=== PATIENT | male | born 1990 | race Caucasian/White ===

== ENCOUNTER 2016-05-23 11:06 | Inpatient (IN) | payer OTHER ==
[~2016-05-23] VITALS: Ht 188 cm; Wt 84.2 kg
--- NOTE | 2016-05-23 14:28 | HISTORY AND PHYSICAL ---
ADMITTED: 05/23/2016 CHIEF COMPLAINT: Left shoulder and arm pain HISTORY OF PRESENT ILLNESS: The patient is an IV drug user, has been injected himself with heroin for a number of years. He ran out of IV sites and gave himself an intramuscular injection to the shoulder area on the left side and then over the last couple days, he has had increasing pain. Said today the pain was especially bad and so he came to the emergency department for care of the same. MEDICAL/SURGICAL HISTORY: The patient's past history is positive in that he has had a previous mandibular fracture and had treatment for that, but he denies any other serious medical illness other than hepatitis, which he knows he has, but he denied AIDS, cancer, tumor, tuberculosis, MS, CVA, hypertension, diabetes, or other serious medical illness. He has had no other surgeries. MEDICATIONS: On no medications other than self injection of heroin. ALLERGIES: NO KNOWN ALLERGIES. SOCIAL HISTORY: Positive for the IV drug abuse and also for tobacco use. FAMILY HISTORY: Noncontributory. He does not have any known history of bleeding or anesthesia complications in the family. REVIEW OF SYSTEMS: Negative for loss of consciousness or seizure disorder, he not had a problem with vision or hearing. He has not had any chest pain, cough, congestion , fever or chills. He denies any vomiting or diarrhea, but he has had some nausea. He has not had any dysuria and denies any other musculoskeletal complaints. PHYSICAL EXAMINATION: GENERAL: Shows the head to be normocephalic and atraumatic. HEENT: His eyes are clear. His extraocular muscles intact. Hearing is grossly normal. He is alert and oriented x3. Mouth and posterior oropharynx are clear and the mouth is symmetrical, tongue is midline. NECK: Without jugular venous distention. HEART: Regular rate and rhythm without murmur. LUNGS: Clear to auscultation. ABDOMEN: Soft and flat. He does have some active bowel sounds. EXTREMITIES: His left upper extremity shows some 2-3+ edema of the upper arm. The compartments are relatively soft. He does have light touch sensation present in the ulnar, median and radial nerve distribution distally and has active abduction, flexion and extension of the fingers through full range of motion and has a 2+ radial pulse. At this point, after elevating the arm here in the emergency room, he has no distal edema. IMPRESSION: Infection of the left upper arm, possible abscess. PLAN: Will be for admission, IV antibiotic dosing and possible incision and drainage of an abscess if there is one found. We are going to put him through the CT scan and have a CT scan done of his shoulder and check to be sure he does not have an abscess present there.
--- NOTE | 2016-05-23 17:00 | Progress Note ---
Subjective General Luke is an IV heroin user and developed an infection post injection to the left deltoid. He is admitted for IV antibiotic care and probable I/D of the shoulder. CT is pending and will help determine further care.
--- NOTE | 2016-05-23 17:59 | DIAGNOSTIC IMAGING REPORT ---
PROCEDURE: CT UPPER EXT W/CONTRAST- LEFT INDICATION: Left upper extremity swelling and tenderness. Initial encounter. TECHNIQUE: 125 ml of Isovue 300 IV with axial scans through the left arm. Coronal and sagittal re-formations. COMPARISON: None. FINDINGS: Marked thickening and inhomogeneity of the left deltoid muscle with a tiny air collection and extensive subcutaneous edema extending all the way down to the elbow joint. This is most consistent with cellulitis and possible phlegmon. There is no definite abscess with a well-defined wall. Bones are unremarkable. IMPRESSION: 1. Extensive cellulitis of the left arm with deltoid muscle phlegmon. There is a small air collection in the deltoid muscle, possibly introduced with a needle puncture, but no well-defined abscess. 2. Results discussed with Dr. Benavides
[2016-05-23 18:51] VITALS: BP 130/82
[2016-05-23 22:36] VITALS: BP 136/77
--- NOTE | 2016-05-23 23:07 | ED MAR SUMMARY ---
..... Medication Administration Record [facility] [address] [place] [address] Patient: SILVIA HICKEY Visit ID: [id number] 26y, M Weight: 70.3 kg Height/Length: 74 in BMI: 19.9 ALLERGIES: No Known Drug Allergy Start 14:14 05/23/2016 Elsa Zafar R.N., Continued Upon Transfer 18:41 05/23/2016 Elsa Zafar R.N. Medication Administered: IV NS (SALINE), Dose: IV Fluids over 1 hour(s), Rate: 1000 mL/hr, Dispensed: 1000 mL bag, Site: #1 right AC. Medication Ordered: IV NS : initial bolus none -, then 1000 mL/hr for X1 (NOW). Given 14:25 05/23/2016 Elsa Zafar R.N. Medication Administered: ZOFRAN [IVP] (ONDANSETRON HCL), Dose: 4 mg IVP over 2 minute(s), Site: #1 right AC. Medication Ordered: Zofran IV 4 mg (NOW). Given 14:27 05/23/2016 Elsa Zafar R.N. Medication Administered: MORPHINE [IVP], Dose: 4 mg IVP over 1 minute(s), Site: #1 right AC. Medication Ordered: Morphine IV 4 mg (HIGH ALERT MEDICATION, NOW). Start 14:57 05/23/2016 Elsa Zafar R.N., Stop 18:41 05/23/2016 Elsa Zafar R.N. Medication Administered: IV LACTATED RINGERS, Dose: IV Fluids over 6 hour(s), Rate: 150 mL/hr, Dispensed: 1000 mL bag, Site: #1 right AC. Medication Ordered: IV Lactated Ringers : initial bolus none -, then 150 mL/hr (NOW). Given 15:49 05/23/2016 Elsa Zafar R.N. Medication Administered: DILAUDID [IVP] (HYDROMORPHONE HCL PF), Dose: 1 mg IVP over 2 minute(s), Site: #1 right AC. Medication Ordered: Dilaudid IV 1 mg (HIGH ALERT MEDICATION, NOW). Start 16:34 05/23/2016 Elsa Zafar R.N., Continued Upon Transfer 18:42 05/23/2016 Elsa Zafar R.N. Medication Administered: VANCOMYCIN [IVPB], Dose: 1.5 gm IVPB over 1.5 hour(s), Rate: 350 mL/hr, Dispensed: 500 mL bag, Site: #1 right AC. Medication Ordered: Vancomycin IV 1.5 gm/500 mL (NOW).
--- NOTE | 2016-05-23 23:07 | ED NURSING NOTES ---
Clinical Report - Nurses [facility] [address] [place] [address] 05/23/2016 11:15 Patient: SILVIA HICKEY TRIAGE Triage time 12:May 23 2016. Acuity: LEVEL 3. Chief Complaint: SKIN RASH and SKIN LESION and TENDER AREA. --12:17 Elsa Zafar R.N. 12:11 05/23/16. BP: 152/74. HR: 112. RR: 18. O2 saturation: 99%. Temp: 98.7 F. Pain level now 11/18. --12:17 Elsa Zafar R.N. Weight: 70.3 kg stated. Height/Length: 74 inches Per Patient. BMI: 19.9. --12:15 Elsa Zafar R.N. Medications None. --12:13 Elsa Zafar R.N. Allergies No Known Drug Allergy. --12:13 Elsa Zafar R.N. History Arrived by private vehicle. Historian: patient. Accompanied by friend. Reported as (left arm). Onset. (2 days). It is described as painful. ( Patient muscling heroin and has a tender and reddened left arm and shoulder.). He has had fever, muscle aches and a headache. No cough, difficulty breathing, itching or weakness. Not itchy or burning. PAST MEDICAL HX: Heart disease: atrial fibrillation. No history of asthma, diabetes mellitus or lung disease. Immunizations: up-to-date. SOCIAL HX: Light tobacco smoker (cigarette)- less than 1/2 a pack per day. History of drug use: heroin, methamphetamines. Recently used drugs just prior to arrival. No alcohol use. SELF HARM ASSESSMENT: A self harm assessment was performed. The patient answered "no" to the question "Have you recently felt down, depressed, or hopeless?" and "Do you have thoughts of harming or killing yourself?". FALL RISK ASSESSMENT: Fall risk assessment completed. No fall risk identified. NUTRITIONAL RISK ASSESSMENT: The nutritional risk assessment revealed no deficiencies. FUNCTIONAL ASSESSMENT: Functional assessment: no impairments noted. LEARNING NEEDS ASSESSMENT: The learning needs assessment revealed no barriers. ABUSE ASSESSMENT: Abuse assessment: (yes) The patient was asked "Do you feel safe in your home?". SKIN INTEGRITY ASSESSMENT: Skin integrity risk assessment completed. No skin integrity risk identified. --12:17 Elsa Zafar R.N. PROBLEMS: Lifestyle / Substance Problems. Arrhythmia. --12:13 Elsa Zafar R.N. ADDITIONAL SURGERIES: Jaw surgery . --12:13 Elsa Zafar R.N. Interventions ID band on patient. --12:17 Elsa Zafar R.N. PHYSICAL ASSESSMENT Ambulatory to room. ( IV and IM heroin user with previous tracks and wounds.). GENERAL / NEURO / PSYCH: Alert. Appears in pain and in distress. Oriented X 4. HEENT: Pupils equal, round and reactive to light. Mucous membranes are pink. RESPIRATORY: Respirations not labored. CVS: ( left arm csm 5-6 seconds right arm wnl). Pulses within normal limits. GI / : Abdomen nontender. SKIN: Normal skin turgor. No skin rash. --12:19 Elsa Zafar R.N. NURSING PROGRESS NOTES The initial plan of care for this patient includes an assessment with efforts to address patient positioning and appropriate ambient lighting; impairment of the integumentary system. Pulse oximeter and NIBP monitor placed on patient. Patient gowned. Head of bed elevated (45). Reassurance given. Call light placed in reach. Side rails up x 2. Bed placed in lowest position. Brakes of bed on. --12:19 Elsa Zafar R.N. 13:14 05/23/16. BP: 115/74. Additional comments: Left wrist. --13:15 Annemarie Schuler 13:15 05/23/16. BP: 144/87. Additional comments: Right wrist. --13:16 Annemarie Schuler 14:13 05/23/2016 Site #1 started via IV in the right antecubital space with an 18g angiocath, with aseptic technique and good blood return; two attempts. Blood drawn: rainbow set and cultures x1. Labeled in the presence of the patient and sent to the lab. Saline lock flushed with 10 mL saline. --14:14 Elsa Zafar R.N. 14:14 05/23/2016 Started bag #1 1000 mL IV Fluids IV NS (Saline); at 1000 mL/hr over 1 hour(s) via site #1 via IV pump. Allergies verified and confirmed 5 rights. IV patency established. IV site checked: no pain, redness, or swelling. IV flushed thoroughly pre- and post-medication administration. --14:14 Elsa Zafar R.N. 14:25 05/23/2016 Zofran (Ondansetron HCl) IVP 4 mg given over 2 minute(s) via site #1. Allergies verified and confirmed 5 rights. IV patency established. IV site checked: no pain, redness, or swelling. IV flushed thoroughly pre- and post-medication administration. --14:25 Elsa Zafar R.N. 14:27 05/23/2016 Morphine IVP 4 mg given over 1 minute(s) via site #1. Allergies verified, confirmed 5 rights and sedative warning given to the patient. IV patency established. IV site checked: no pain, redness, or swelling. IV flushed thoroughly pre- and post-medication administration. --14:27 Elsa Zafar R.N. 14:57 05/23/2016 Started bag #1 1000 mL IV Fluids IV LACTATED RINGERS; at 150 mL/hr over 6 hour(s) via site #1 via dial-a-flow. Allergies verified and confirmed 5 rights. IV patency established. IV site checked: no pain, redness, or swelling. IV flushed thoroughly pre- and post-medication administration. --14:57 Elsa Zafar R.N. 15:49 05/23/2016 Dilaudid (HYDROmorphone HCl PF) IVP 1 mg given over 2 minute(s) via site #1. Allergies verified, confirmed 5 rights and sedative warning given to the patient. IV patency established. IV site checked: no pain, redness, or swelling. IV flushed thoroughly pre- and post-medication administration. --15:49 Elsa Zafar R.N. 16:34 05/23/2016 Started 1.5 gm of Vancomycin IVPB in bag #1 500 mL; at 350 mL/hr over 1.5 hour(s) via site #1 via IV pump. Allergies verified and confirmed 5 rights. IV patency established. IV site checked: no pain, redness, or swelling. IV flushed thoroughly pre- and post-medication administration. --16:34 Elsa Zafar R.N. ( Report given to french ANTHONY in ACU transport called.). --18:10 Elsa Zafar R.N. 18:13 05/23/16. BP: 147/73. HR: 98. RR: 18. O2 saturation: 98%. Temp: 98.7 F. Pain level now 12/19. --18:15 Elsa Zafar R.N. 18:41 05/23/2016 IV Fluids IV NS Continued: upon transfer at the rate of 125 mL/hr. 500 mL remaining bag #1. IV patency established. IV site checked: no pain, redness, or swelling. IV flushed thoroughly. --18:41 Elsa Zafar R.N. 18:41 05/23/2016 IV Fluids IV LACTATED RINGERS Discontinued: bag #1 infused. Total amount infused: 1000 mL. IV patency established. IV site checked: no pain, redness, or swelling. IV flushed thoroughly. --18:41 Elsa Zafar R.N. 18:42 05/23/2016 Site #[address] upon transfer; patent. Good blood return present. --18:42 Elsa Zafar R.N. 18:42 05/23/2016 Vancomycin IVPB Continued: upon transfer at the rate of 350 mL/hr. 300 mL remaining bag #1. IV patency established. IV site checked: no pain, redness, or swelling. IV flushed thoroughly. --18:42 Elsa Zafar R.N. DISPOSITION / DISCHARGE Departure time: 18:40 May 23 2016. Condition at departure: improved. Admitted to Acute Care. ( report given and transportation here for transport.). --18:40 Elsa Zafar R.N. 18:13 05/23/16. BP: 147/73. HR: 98. RR: 18. O2 saturation: 98%. Temp: 98.7 F. Pain level now 12/19. --18:40 Elsa Zafar R.N. Locked/Released at 05/23/2016 19:26 by Elsa Zafar R.N.
--- NOTE | 2016-05-23 23:07 | ED DISCHARGE INSTRUCTIONS ---
Patient: SILVIA HICEKY General Instructions [facility] VisitID: [id number] [address] [place] [address] 26y, M Registration Date/Time: 05/23/2016 Single deep abscess to the left upper extremity. Moderate leukocytosis with bandemia. (Electronically signed by Jose E Benavides Dr. 05/23/2016 23:07)
--- NOTE | 2016-05-23 23:07 | ED MED RECONCILIATION SUMMARY ---
Patient: SILVIA HICKEY Medication Reconciliation Report [facility] VisitID: [id number] [address] [place] [address] 26y, M Registration Date/Time: 05/23/2016 Weight: 70.3 kg Height/Length: 74 in. BMI: 19.9 ALLERGIES: No Known Drug Allergy The patient's Home Medications are listed below: NONE. The source(s) of the original Home Medication information: Not obtained. The following Medications were given to the patient in the Emergency Department: IV NS IV Fluids bolus 0, then 1000 mL/hr, administered: 05/23/2016 2:14:00 PM Zofran [IVP] IVP 4 mg, administered: 05/23/2016 2:25:00 PM Morphine [IVP] IVP 4 mg, administered: 05/23/2016 2:27:00 PM IV LACTATED RINGERS IV Fluids bolus 0, then 150 mL/hr, administered: 05/23/2016 2:57:00 PM Dilaudid [IVP] IVP 1 mg, administered: 05/23/2016 3:49:00 PM Vancomycin [IVPB] IVPB bolus 0, then 1.5 gm 350 mL/hr, administered: 05/23/2016 4:34:00 PM The following Medications were prescribed to the patient: None.
--- NOTE | 2016-05-23 23:07 | ED MED RECONCILIATION SUMMARY ---
Patient: SILVIA HICKEY Medication Reconciliation Report [facility] VisitID: [id number] [address] [place] [address] 26y, M Registration Date/Time: 05/23/2016 Weight: 70.3 kg Height/Length: 74 in. BMI: 19.9 ALLERGIES: No Known Drug Allergy The patient's Home Medications are listed below: NONE. The source(s) of the original Home Medication information: Not obtained. The following Medications were given to the patient in the Emergency Department: IV NS IV Fluids bolus 0, then 1000 mL/hr, administered: 05/23/2016 2:14:00 PM Zofran [IVP] IVP 4 mg, administered: 05/23/2016 2:25:00 PM Morphine [IVP] IVP 4 mg, administered: 05/23/2016 2:27:00 PM IV LACTATED RINGERS IV Fluids bolus 0, then 150 mL/hr, administered: 05/23/2016 2:57:00 PM Dilaudid [IVP] IVP 1 mg, administered: 05/23/2016 3:49:00 PM Vancomycin [IVPB] IVPB bolus 0, then 1.5 gm 350 mL/hr, administered: 05/23/2016 4:34:00 PM The following Medications were prescribed to the patient: None.
--- NOTE | 2016-05-23 23:07 | ED DISCHARGE INSTRUCTIONS ---
Patient: SILVIA HICKEY General Instructions [facility] VisitID: [id number] [address] [place] [address] 26y, M Registration Date/Time: 05/23/2016 Single deep abscess to the left upper extremity. Moderate leukocytosis with bandemia. (Electronically signed by Jose E Benavides Dr. 05/23/2016 23:07)
--- NOTE | 2016-05-23 23:07 | ED ORDER SUMMARY ---
..... Patient: SILVIA HICKEY OrderSheet [facility] VisitID: [id number] [place] [address] 26y, M Registration Date/Time: 05/23/2016 ORDER SHEET Weight: 70.3 kg (stated) Allergies: No Known Drug Allergy GENERAL ORDERS: CBC w Diff Urgent (13:18 05/23/2016 Jeremy Toro) (Ack 13:19 TBergley) (14:12 LWhalen R.N.) CMP Urgent (13:18 05/23/2016 Jeremy Toro) (Ack 13:19 TBergley) (14:12 LWhalen R.N.) UA-Culture if indicated Urgent (13:18 05/23/2016 Jeremy Toro) (Ack 13:19 TBergley) (14:12 LWhalen R.N.) Urine Drug Screen Urgent (13:05/23/2016 Jeremy Toro) (Ack 13:19 TBergley) (14:12 LWhalen R.N.) Blood Culture (No) (N/A) Urgent (13:05/23/2016 Jeremy Toro) (Ack 13:23 TBergley) (14:12 LWhalen R.N.) CRP Urgent (13:22 05/23/2016 Jeremy Toro) (Ack 13:23 TBergley) (14:12 LWhalen R.N.) Sed Rate Urgent (13:05/23/2016 Jeremy Toro) (Ack 13:23 TBergley) (14:12 LWhalen R.N.) PCT (Procalcitonin) Urgent (13:22 05/23/2016 Jeremy Toro) (Ack 13:23 TBergley) (14:12 LWhalen R.N.) Lactate, Serum Urgent (13:22 05/23/2016 Jeremy Toro) (Ack 13:23 TBergley) (14:12 LWhalen R.N.) NPO (14:36 05/23/2016 Jeremy Toro) (14:57 LWhalen R.N.) CT Upper Ext w/Contrast - Left Urgent (15:44 05/23/2016 Jeremy Toro) (Ack 15:46 TBergley) (17:33 TBergley) MEDICATION ORDERS: IV FLUIDS: IV NS : initial bolus none -, then 1000 mL/hr for X1 (NOW) (13:15 05/23/2016 Jeremy Toro) (14:14 LWhalkevin R.N.) Morphine IV 4 mg (HIGH ALERT MEDICATION, NOW) (14:18 05/23/2016 Jeremy Toro) (14:27 LWhalen R.N.) Zofran IV 4 mg (NOW) (14:18 05/23/2016 Jeremy Toro) (14:25 LWhalkevin R.N.) IV Lactated Ringers : initial bolus none -, then 150 mL/hr (NOW) (14:36 05/23/2016 Jeremy Toro) (14:57 LWhalen R.N.) Vancomycin IV 1.5 gm/500 mL (NOW) (15:41 05/23/2016 Jeremy Toro) (16:34 LWhalen R.N.) Dilaudid IV 1 mg (HIGH ALERT MEDICATION, NOW) (15:46 05/23/2016 Jeremy Toro) (15:49 LWhalkevin R.N.) ORDER SHEET NOTES: [Electronically signed by Elsa Zafar R.N. (19:26 05/23/2016)] [Electronically signed by Jose E Benavides Dr. (23:07 05/23/2016)] [Electronically locked/signed by Elsa Zafar R.N. (19:26 05/23/2016)]
--- NOTE | 2016-05-23 23:07 | ED MAR SUMMARY ---
..... Medication Administration Record [facility] [address] [address] Patient: SILVIA HICKEY Visit ID: [id number] 26y, M Weight: 70.3 kg Height/Length: 74 in BMI: 19.9 ALLERGIES: No Known Drug Allergy Start 14:14 05/23/2016 Elsa Zafar R.N., Continued Upon Transfer 18:41 05/23/2016 Elsa Zafar R.N. Medication Administered: IV NS (SALINE), Dose: IV Fluids over 1 hour(s), Rate: 1000 mL/hr, Dispensed: 1000 mL bag, Site: #1 right AC. Medication Ordered: IV NS : initial bolus none -, then 1000 mL/hr for X1 (NOW). Given 14:25 05/23/2016 Elsa Zafar R.N. Medication Administered: ZOFRAN [IVP] (ONDANSETRON HCL), Dose: 4 mg IVP over 2 minute(s), Site: #1 right AC. Medication Ordered: Zofran IV 4 mg (NOW). Given 14:27 05/23/2016 Elsa Zafar R.N. Medication Administered: MORPHINE [IVP], Dose: 4 mg IVP over 1 minute(s), Site: #1 right AC. Medication Ordered: Morphine IV 4 mg (HIGH ALERT MEDICATION, NOW). Start 14:57 05/23/2016 Elsa Zafar R.N., Stop 18:41 05/23/2016 Elsa Zafar R.N. Medication Administered: IV LACTATED RINGERS, Dose: IV Fluids over 6 hour(s), Rate: 150 mL/hr, Dispensed: 1000 mL bag, Site: #1 right AC. Medication Ordered: IV Lactated Ringers : initial bolus none -, then 150 mL/hr (NOW). Given 15:49 05/23/2016 Elsa Zafar R.N. Medication Administered: DILAUDID [IVP] (HYDROMORPHONE HCL PF), Dose: 1 mg IVP over 2 minute(s), Site: #1 right AC. Medication Ordered: Dilaudid IV 1 mg (HIGH ALERT MEDICATION, NOW). Start 16:34 05/23/2016 Elsa Zafar R.N., Continued Upon Transfer 18:42 05/23/2016 Elsa Zafar R.N. Medication Administered: VANCOMYCIN [IVPB], Dose: 1.5 gm IVPB over 1.5 hour(s), Rate: 350 mL/hr, Dispensed: 500 mL bag, Site: #1 right AC. Medication Ordered: Vancomycin IV 1.5 gm/500 mL (NOW).
--- NOTE | 2016-05-23 23:07 | ED CLINICAL REPORT ---
Clinical Report - Physicians/Mid Levels [facility] [address] [place] [address] 05/23/2016 11:15 Patient: SILVIA HICKEY Time Seen: 12:58; initial patient contact. Arrived- By private vehicle. Historian- patient. HISTORY OF PRESENT ILLNESS Chief Complaint: BOIL. This started about 2 days ago and is still present and worsening. It was gradual in onset. It is described as painful. It has been located on the left arm. A cause has been identified (IM heroin injecting). No recent medication or insect bite. Similar symptoms previously: Several times. Recent medical care: Not recently seen/assessed. REVIEW OF SYSTEMS The patient has had fever, chills and numbness. No enlarged lymph nodes. All systems otherwise negative, except as recorded above. PAST HISTORY Lifestyle / Substance Problems. Arrhythmia. SURGERIES: Jaw surgery. Medications: None. Allergies: No Known Drug Allergy. SOCIAL HISTORY History of IV drug use: heroin, methamphetamines. Recently used drugs today. No alcohol use. ADDITIONAL NOTES The nursing notes have been reviewed with agreement regarding the chief complaint, PMH and patient medications and allergies. PHYSICAL EXAM Vital Signs: 05/23/2016 12:11 BP: 152/74. HR: 112. RR: 18. O2 saturation: 99%. Temp: 98.7 F. Have been reviewed. Hypertensive. Tachycardic. Respiratory rate normal. Temperature normal. Oxygen saturation normal. Appearance: Alert. Oriented X3. Appears to be in pain. ENT: Dry mucous membranes present. Neck: No lymphadenopathy. CVS: Normal heart rate and rhythm. Heart sounds normal. Respiratory: No respiratory distress. Breath sounds normal. Skin: Cool skin (L forearm, mild). Erythema. Single large tender indurated area with cellulitis to left arm. Cellulitis. Neuro: The patient has had constant weakness of the left hand (mild). Sensory deficit present. (Mild to light touch L hand). LABS, X-RAYS, AND EKG Note - Special Studies: CT LUE: 1. Extensive cellulitis of the left arm with deltoid muscle phlegmon. There is a small air collection in the deltoid muscle, possibly introduced with a needle puncture, but no well-defined abscess. Laboratory Tests: UA-Culture if indicated: (GRACIE: 05/23/2016 14:18) ( [facility] 05/23/2016 14:54) Final results Test Result Flag Units (Reference) URINE COLOR YELLOW URINE APPEARANCE CLEAR URINE GLUCOSE NEGATIVE (NEGATIVE) URINE BILIRUBIN NEGATIVE (NEGATIVE) URINE KETONE NEGATIVE (NEGATIVE) URINE SPECIFIC GRAVITY >= 1.030 (1.010-1.030) URINE PH 6.0 (5.0-8.0) URINE PROTEIN TRACE (NEGATIVE) URINE UROBILINOGEN 0.2 EU/dL (0.2-1.0) URINE NITRITE NEGATIVE (NEGATIVE) URINE BLOOD NEGATIVE (NEGATIVE) URINE LEUK ESTERASE NEGATIVE (NEGATIVE) URINE RBC NONE SEEN rbc/hpf (0-1) URINE WBC 0-1 wbc/hpf (0-1) URINE EPITHELIAL CELLS 0-1 EPI/hpf (0-5) URINE BACTERIA NONE SEEN (NONE SEEN) URINE COMMENT CULT NOT INDICATED 2+ MUCUS2+ CALCIUM OXALATE CRYSTALSURINE CULTURES ARE SET-UP BASED ON THE FOLLOWING CRITERIA:POSITIVE NITRITEPOSITIVE LEUKOCYTE ESTERASEGREATER THAN 10 WHITE BLOOD CELLSMODERATE (2+) OR GREATER BACTERIA ESR: (GRACIE: 05/23/2016 14:02) ( [facility] 05/23/2016 14:37) Final results Test Result Flag Units (Reference) SED RATE WESTERGREN 2 mm/hr (0-15) CBC w Diff: (GRACIE: 05/23/2016 14:02) ( [facility] 05/23/2016 18:49) Final results Test Result Flag Units (Reference) WHITE BLOOD COUNT 26.3 *H K/uL (4.5-11.5) CRITICAL RESULTS CALLEDCalled to Mei DREW 05/23/16 1815Were 2 patient identifiers used? YWas the result read back? Y RED BLOOD COUNT 5.99 H M/uL (4.50-5.90) HEMOGLOBIN 16.7 gm/dL (13.5-17.5) HEMATOCRIT 50.9 % (41.0-53.0) MEAN CELL VOLUME 85 fL (80-100) MEAN CORPUSCULAR HGB 28 pg (26-34) MEAN CORPUSCULAR HGB CONC 33 g/dL (31-37) RED CELL DISTRIBUTION WIDTH 14.5 % (11.6-14.8) PLATELET COUNT 257 K/uL (150-400) POLY % 84 H % (50-75) BAND % 5 % (0-8) LYMPH 6 L % (25-40) MONO 5 % (3-14) EOSINOPHIL % 0 % (0-4) BASOPHIL % 0 % (0-2) METAMYELOCYTE % 0 % (0-1) MYELOCYTE 0 % (0-1) OTHER CELL TYPE 0 RBC MORPHOLOGY NORMOCHROMIC~~NORMOCYTIC [id number]: (GRACIE: 05/23/2016 14:02) ( [facility] 05/23/2016 14:38) Final results Test Result Flag Units (Reference) C-REACTIVE PROTEIN 16.8 H mg/dL (0.0-0.9) Lactate, Serum: (GRACIE: 05/23/2016 14:05) ( [facility] 05/23/2016 14:49) Final results Test Result Flag Units (Reference) LACTIC ACID 1.2 mmol/L (0.4-2.0) [id number]: (GRACIE: 05/23/2016 14:02) ( [facility] 05/23/2016 14:54) Final results Test Result Flag Units (Reference) PROCALCITONIN <0.5 ng/mL (0-0.5) PCT Concentration: Interpretation : Risk/option for action PCT <=0.5 ng/mL : Systemic : Low risk forinfection(sepsis): progression to severeis not likely. : systemic infection.Local bacterial : CAUTION-PCT levelsinfection is : below 0.5 ng/mL do notpossible. : exclude an infection,because localizedinfections (withoutsystemic signs) may beassociated with suchlow levels. If PCT ismeasured very earlyafter a bacterialchallenge (usually <6hours), these valuesmay still be low. Inthis case PCT shouldbe re-assessed 6-24hours later. PCT >0.5 and : Systemic infection: Moderate risk for<= 2 ng/mL : (sepsis) is : progression to severepossible, but : systemic infection.other conditions : The patient should beare known to : closely monitoredelevate PCT. : both clinically andby re-assessing PCTwithin 6-24 hours. PCT > 2 ng/mL : Systemic infection: High risk for(sepsis) is likely: progression to severeunless other : systemic infection.causes are known. : PCT >= 10 ng/mL : Important systemic: High likelihood ofinflammatory : severe sepsis orresponse, almost : septic shock.exclusively due to:severe bacterial :sepsis or septic :shock. : Urine Drug Screen: (GRACIE: 05/23/2016 14:18) ( MsgRcvd 05/23/2016 14:38) Final results Test Result Flag Units (Reference) AMPHETAMINE/METHAMPHETAMINE POSITIVE H (NEGATIVE) BARBITURATE NEGATIVE (NEGATIVE) BENZODIAZEPINE POSITIVE H (NEGATIVE) CANNABINOID NEGATIVE (NEGATIVE) COCAINE NEGATIVE (NEGATIVE) ECSTASY POSITIVE H (NEGATIVE) METHADONE NEGATIVE (NEGATIVE) OPIATE POSITIVE H (NEGATIVE) The urine drug screen is a qualitative screening test fordrug overdose and abuse. All screen results should beconsidered as presumptive.Drugs screened for are as follows:BenzodiazepinesCocaineAmphetamines/MetamphetaminesTHC (Tetrahydrocannabinol)OpiatesBarbituratesEcstasyMethadonePositive results are unconfirmed. For confirmation, notifythe lab for the specimen to be sent to the reference lab.All confirmations must be performed by a differentmethodology.The ingestion of natural herbal and plant productscontaining Ephedra/Ephedra metabolites can produce in urineone or more substances capable of cross reacting withamphetamine/methamphetamine immunoassays. These testsprovide a preliminary result only. A more specificalternative chemical method must be used to obtain aconfirmed analytical result. CMP: (GRACIE: 05/23/2016 14:02) ( MsgRcvd 05/23/2016 18:21) Final results Test Result Flag Units (Reference) GLUCOSE 126 H mg/dL (70-110) BUN 10 mg/dL (7-18) CREATININE 0.7 mg/dL (0.6-1.3) Estimated GFR >60 mL/min Estimated GFR- >60 mL/min Note: Persistent reduction over 3 months in eGFR<60 mL/min/1.73 m2 defines CKD. Patients with eGFR values>=60 mL/min/1.73 m2 may also have CKD if evidence ofpersistent proteinuria. Additional information may be foundat www.kidney.org. SODIUM 135 L mmol/L (136-145) POTASSIUM 4.2 mmol/L (3.5-5.1) CHLORIDE 101 mmol/L (98-107) CARBON DIOXIDE 27 mmol/L (21-32) CALCIUM 8.4 L mg/dL (8.5-10.1) TOTAL PROTEIN 7.4 g/dL (6.4-8.2) ALBUMIN 3.3 g/dL (3.3-5.0) BILIRUBIN, TOTAL 1.5 H mg/dL (0.0-1.0) ALKALINE PHOSPHATASE 67 U/L (46-116) AST (SGOT) 71 H U/L (15-37) ALT (SGPT) 82 H U/L (12-78) . PROGRESS AND PROCEDURES Course of Care: 05/23/2016 18:13 BP: 147/73. HR: 98. RR: 18. O2 saturation: 98%. Temp: 98.7 F. Vital Signs: have been reviewed. Hypertensive. Heart rate normal. Respiratory rate normal. Oxygen saturation normal. Critical care performed (70 minutes). Time includes: direct patient care, patient reassessment, coordination of patient care, interpretation of data (laboratory data), review of patient's medical records, medical consultation and documentation of patient care. The patient required critical care due to the acute impairment of vital organ systems (metabolic) and a high probability of imminent deterioration. Multiple urgent interventions were required to prevent sudden deterioration (Musculoskeletal and neurologic). Discussed case with on-call health care provider, (call returned 1330 Dr. Lara will admit the pt for surgery). Disposition: Admitted to Acute Care. CLINICAL IMPRESSION Single deep abscess to the left upper extremity. Moderate leukocytosis with bandemia. (Electronically signed by Jose E Benavides Dr. 05/23/2016 23:07)
--- NOTE | 2016-05-23 23:07 | ED ORDER SUMMARY ---
..... Patient: SILVIA HICKEY OrderSheet [facility] VisitID: [id number] [place] [address] 26y, M Registration Date/Time: 05/23/2016 ORDER SHEET Weight: 70.3 kg (stated) Allergies: No Known Drug Allergy GENERAL ORDERS: CBC w Diff Urgent (13:18 05/23/2016 Jeremy Toro) (Ack 13:19 TBergley) (14:12 LWhalen R.N.) CMP Urgent (13:18 05/23/2016 Jeremy Toro) (Ack 13:19 TBergley) (14:12 LWhalen R.N.) UA-Culture if indicated Urgent (13:18 05/23/2016 Jeremy Toro) (Ack 13:19 TBergley) (14:12 LWhalen R.N.) Urine Drug Screen Urgent (13:05/23/2016 Jeremy Toro) (Ack 13:19 TBergley) (14:12 LWhalen R.N.) Blood Culture (No) (N/A) Urgent (13:05/23/2016 Jeremy Toro) (Ack 13:23 TBergley) (14:12 LWhalen R.N.) CRP Urgent (13:22 05/23/2016 Jeremy Toro) (Ack 13:23 TBergley) (14:12 LWhalen R.N.) Sed Rate Urgent (13:05/23/2016 Jeremy Toro) (Ack 13:23 TBergley) (14:12 LWhalen R.N.) PCT (Procalcitonin) Urgent (13:22 05/23/2016 Jeremy Toro) (Ack 13:23 TBergley) (14:12 LWhalen R.N.) Lactate, Serum Urgent (13:22 05/23/2016 Jeremy Toro) (Ack 13:23 TBergley) (14:12 LWhalen R.N.) NPO (14:36 05/23/2016 Jeremy Toro) (14:57 LWhalen R.N.) CT Upper Ext w/Contrast - Left Urgent (15:44 05/23/2016 Jeremy Toro) (Ack 15:46 TBergley) (17:33 TBergley) MEDICATION ORDERS: IV FLUIDS: IV NS : initial bolus none -, then 1000 mL/hr for X1 (NOW) (13:15 05/23/2016 Jeremy Toro) (14:14 LWhalkevin R.N.) Morphine IV 4 mg (HIGH ALERT MEDICATION, NOW) (14:18 05/23/2016 Jeremy Toro) (14:27 LWhalen R.N.) Zofran IV 4 mg (NOW) (14:18 05/23/2016 Jeremy Toro) (14:25 LWhalkevin R.N.) IV Lactated Ringers : initial bolus none -, then 150 mL/hr (NOW) (14:36 05/23/2016 Jeremy Toro) (14:57 LWhalen R.N.) Vancomycin IV 1.5 gm/500 mL (NOW) (15:41 05/23/2016 Jeremy Toro) (16:34 LWhalen R.N.) Dilaudid IV 1 mg (HIGH ALERT MEDICATION, NOW) (15:46 05/23/2016 Jeremy Toro) (15:49 LWhalkevin R.N.) ORDER SHEET NOTES: [Electronically signed by Elsa Zafar R.N. (19:26 05/23/2016)] [Electronically signed by Jose E Benavides Dr. (23:07 05/23/2016)] [Electronically locked/signed by Elsa Zafar R.N. (19:26 05/23/2016)]
[2016-05-24 02:03] VITALS: BP 123/69
[2016-05-24 06:51] VITALS: BP 132/82
--- NOTE | 2016-05-24 08:29 | Progress Note ---
Subjective General VSS Afeb WBC 26.[address] shows no abscess. Continue IV Vancocin Check labs in am
--- NOTE | 2016-05-24 08:29 | Progress Note ---
Subjective General VSS Afeb WBC 26.[address] shows no abscess. Continue IV Vancocin Check labs in am
[2016-05-24 11:37] VITALS: BP 132/78
[2016-05-24 15:15] VITALS: BP 144/81
[2016-05-24 18:06] VITALS: BP 134/75
[2016-05-24 22:20] VITALS: BP 141/76
[2016-05-25 03:35] VITALS: BP 134/79
--- NOTE | 2016-05-25 06:30 | Progress Note ---
Subjective General VSS Afeb Labs still pending. C/S with no growth yesterday Left shoulder and arm are, if anything, more swollen again today. NMV remains intact distally and he does not have a compartment syndrome, but he is not getting well and still has considerable pain. I will order a repeat CT today and think he may be developing an abscess of the arm even though the original CT did not show one. if there is an abscess, then I?D will be necessary.
[2016-05-25 07:13] VITALS: BP 133/87
--- NOTE | 2016-05-25 10:24 | DIAGNOSTIC IMAGING REPORT ---
PROCEDURE: XR CHEST 1 VIEW INDICATION: PICC PLACEMENT TECHNIQUE: Portable AP view 10:10 a.m. COMPARISON: Chest x-ray 09/04/2011 FINDINGS: Interval placement of a right PICC line with the tip at the SVC/right atrial junction. Lungs are clear. Heart and mediastinum are normal. Thorax is normal. IMPRESSION: 1. Right PICC line in satisfactory position 2. Results called to respiratory (Jae).
--- NOTE | 2016-05-25 12:22 | DIAGNOSTIC IMAGING REPORT ---
PROCEDURE: CT UPPER EXT W/CONTRAST- LEFT INDICATION: Swelling and pain left shoulder and upper arm ?abscess. TECHNIQUE: 125 ml Isovue 300 IV with axial scans, coronal and sagittal re-formations. COMPARISON: Left shoulder CT scan 05/23/2016 FINDINGS: Stable enlargement and inhomogeneity of the deltoid muscle with no change in the small gas collection and no evidence of a focal abscess. There is extensive subcutaneous edema of the left arm extending down to the elbow with increasing edema of the left anterior lateral chest wall. There is marked narrowing of the left axillary vein secondary to edema. Mildly prominent left axillary lymph nodes. There is a new small left pleural effusion and mild left basilar compress atelectasis. IMPRESSION: 1. No change in the deltoid cellulitis without evidence of an abscess but there are is a tiny gas collection and S organism is a possibility 2. Extensive edema of the arm extending to the elbow, with marked narrowing of the left axillary vein, secondary to edema 3. Progression of left marked chest wall edema 4. New small left pleural effusion 5. Results discussed with Dr. Lara
--- NOTE | 2016-05-25 14:06 | Progress Note ---
Subjective General CT reviewed and discussed with Radiologist. He has edema w/o abscess seen and a tiny pocket of air in the lateral deltoid that likely represents the injection site and which has not changed from the previous exam. The WBC is down to 16.5 and he is afebrile and comfortable with the PO pain meds. I have added PCN to the Vancocin and will recheck in am.
[2016-05-25 14:40] VITALS: BP 121/68
[2016-05-25 19:14] VITALS: BP 113/64
[2016-05-25 22:22] VITALS: BP 121/57
[2016-05-26] VITALS (7 sets, daily range): BP systolic 11–176; BP diastolic 51–78
--- NOTE | 2016-05-26 11:25 | Progress Note ---
Subjective General VSS Afebrile WBC 11.5 Better today with some decreaed edema. NMV intact distally. Continue IV antibiotics.
--- NOTE | 2016-05-26 11:25 | Progress Note ---
Subjective General VSS Afebrile WBC 11.5 Better today with some decreaed edema. NMV intact distally. Continue IV antibiotics.
[2016-05-27 02:08] VITALS: BP 121/54
[2016-05-27 07:21] VITALS: BP 124/58
--- NOTE | 2016-05-27 07:38 | Progress Note ---
Subjective General VSS Afebrile Labs pending. Decreased edema, warmth, and erythema this am. He's moving the shoulder and elbow through near full AROM with only mild discomfort. Continue IV antibiotics. Wean Methadone.
[2016-05-27 10:23] VITALS: BP 126/57
[2016-05-27 14:16] VITALS: BP 127/48
[2016-05-27 18:17] VITALS: BP 129/81
[2016-05-27 22:37] VITALS: BP 121/69
[2016-05-28 02:49] VITALS: BP 120/73
[2016-05-28 07:19] VITALS: BP 128/67
--- NOTE | 2016-05-28 07:28 | Progress Note ---
Subjective General VSS Afeb Labs pending His arm is slowly getting better with decreased edema and erythema and warmth today He still needs placement/drug rehab/methadone clinic. He might be DCd when OP arrangements are made. Continue antibiotics. Wean Methadone.
[2016-05-28 11:07] VITALS: BP 123/59
[2016-05-28 14:32] VITALS: BP 129/71
[2016-05-28] MEDS ORDERED: BACTRIM DS1 TAB PO (14:59)
--- NOTE | 2016-05-28 14:59 | Provider's Discharge Care Plan ---
Problem, Goal, Plan Problem List 1. Cellulitis of arm, left
--- NOTE | 2016-05-28 14:59 | Provider's Discharge Care Plan ---
Problem, Goal, Plan Problem List 1. Cellulitis of arm, left
[2016-05-28] MEDS ORDERED: PEN-VEE K250 MG PO (15:00)
[2016-05-28] MEDS ORDERED: METHADONE HCL5 MG PO (15:01)
--- NOTE | 2016-05-29 04:01 | DISCHARGE SUMMARY ---
ADMIT DATE: 05/23/2016 DISCHARGE DATE: 05/28/2016 DISCHARGE DIAGNOSIS: 1. Cellulitis of the left arm BRIEF HISTORY: History is that the patient has been shooting himself with heroin. Just injected into the muscle of his left shoulder and began having increased swelling and pain of the left arm and came to the emergency department, had a cellulitis and was admitted for care of the same, with the thought he might develop an abscess, might need to have drainage which in fact it turned out not to be the case. HOSPITAL COURSE: No abscess was seen on multiple CT scans. The patient was started first on vancomycin and then later penicillin was added to the regimen. With that, his white count, which was markedly elevated at admission, dropped down to normal. His vital signs were stable. He is afebrile. The swelling, pain, erythema, and warmth in the arm all subsided. His sensation, motor function, and circulation remained intact throughout. By 05/28/2016, he is feeling much better. DISCHARGE MEDICATIONS/INSTRUCTIONS: He was discharged home. He said he could go home to his father's house. He had been living in the [facility] prior to this, but he said he could go home to his father's house and was discharged. He was placed on methadone while he was here in the hospital and I did order methadone 5 mg to take 3 pills p.o. b.i.d. He was given instructions on how to get the methadone clinic and get started there. I just ordered 20 of pills and hopefully by then he can get to the methadone clinic and get started on a program there, rather than go back to his self injections. He will return for followup in our office in a week and he will take penicillin 250 mg q.i.d. and Bactrim-DS 1 tablet p.o. b.i.d. and 30 of the Bactrim and 60 of the penicillin were ordered. The condition at discharge is stable. Prognosis is good. Discharge status again is in the care of his father.
== END 2016-05-28 16:52 | disposition home or self-care (01) | DRG 383 ==
LOC: ED SRH 11:06 → TRANS SRH 14:00 → ACUTE2 SRH 14:00
PROVIDERS: ADMIT Family Medicine
PROC: 3E0234Z Introduction of Serum, Toxoid and Vaccine into Muscle, Percutaneous Approach (ICD-10-PCS; 2016-05-24)
PROC: 02HV33Z Insertion of Infusion Device into Superior Vena Cava, Percutaneous Approach (ICD-10-PCS; principal; 2016-05-25)
DX: L03.114 Cellulitis of left upper limb (principal); D72.829 Elevated white blood cell count, unspecified; S41.132A Puncture wound without foreign body of left upper arm, initial encounter; W46.0XXA Contact with hypodermic needle, initial encounter; Y99.8 Other external cause status; F11.10 Opioid abuse, uncomplicated; F15.10 Other stimulant abuse, uncomplicated; Z23 Encounter for immunization; F17.210 Nicotine dependence, cigarettes, uncomplicated